=== PATIENT | female | born 1990 | race Caucasian/White ===

== ENCOUNTER 2017-07-08 12:03 | Emergency (ER) | payer MEDICAID, OTHER ==
[2017-07-08 12:12] VITALS: BP 121/76; PULSE 68; RESP 17; TEMP 98.7; O2SAT 99
[2017-07-08] MEDS ORDERED: Tdap Vaccine 0.5 ml Vial (10-64 yrs) IM ONE ×2 (12:15→12:23)
[2017-07-08] MEDS ORDERED: Lidocaine 1% Inj (20ml) INFIL ONE (12:16)
[2017-07-08] MEDS ORDERED: Bacitracin 500 Units/gm Oint Foilpak UD TOP STA (12:16)
--- NOTE | 2017-07-08 12:16 | C.PDOC ---
History Of Present Illness 27-year-old female, presents to the emergency department for evaluation of a laceration sustained to right 3rd and 4th fingers from broken plate, while she was washing dishes. Patient denies any numbness/weakness/change in sensation. No other injuries. Tetanus is not up to date. Time Seen by Provider: 07/08/17 12:13 Chief Complaint (Nursing): Abnormal Skin Integrity History Per: Patient History/Exam Limitations: no limitations Current Symptoms Are (Timing): Still Present Past Medical History Reviewed: Historical Data, Nursing Documentation, Vital Signs Vital Signs: Last Vital Signs Temp 98.7 F 07/08/17 12:06 Pulse 68 07/08/17 12:06 Resp 17 07/08/17 12:06 BP 121/76 07/08/17 12:06 Pulse Ox 99 07/08/17 13:56 - Medical History PMH: Hyperthyroidism Family History: States: No Known Family Hx - Social History Hx Alcohol Use: No Hx Substance Use: No - Immunization History Hx Tetanus Toxoid Vaccination: No Hx Influenza Vaccination: No Hx Pneumococcal Vaccination: No Review Of Systems Musculoskeletal: Positive for: Hand Pain Neurological: Negative for: Weakness, Numbness Physical Exam - Physical Exam Appears: Non-toxic, No Acute Distress Skin: Normal Color, Warm, Dry, No Rash Head: Atraumatic, Normacephalic Nose: Normal Neck: Normal ROM Respiratory: No Accessory Muscle Use Extremity: Normal ROM, Capillary Refill (<2 seconds), No Deformity, No Swelling , Other (Right Hand: 1.2cm irregular laceration to palmar aspect of distal third digit. 1.3 cm linear laceration to palmar aspect of proximal 4th digit. No foreign body) ED Course And Treatment O2 Sat by Pulse Oximetry: 99 (RA) Pulse Ox Interpretation: Normal Progress Note: Pt given Tetanus vaccine Laceration - Laceration Repair R Hand: distal 3rd Digit Wound Length (In cm): 1.2 Description Of Wound: Irregular Wound Cleansed With: Betadine, Sterile Saline Anesthesia: Lidocaine 1% Wound Examination: Irrigated With Saline (high pressure), No FB With Wound Exploration, No Tendon Injury With Wound Exploration Wound Closure: Suture (3) Suture Technique And Material Used: Nylon (4-O) R Hand: proximal 4th digit Wound Length (In cm): 1.3 Description Of Wound: Linear Wound Cleansed With: Betadine, Sterile Saline Anesthesia: Lidocaine 1% Wound Examination: Irrigated With Saline (high pressure), No FB With Wound Exploration, No Tendon Injury With Wound Exploration Wound Closure: Suture (2) Suture Technique And Material Used: Nylon (4-0) Medical Decision Making Medical Decision Making: Splint applied to R 4th digit by software validation technician. Disposition Counseled Patient/Family Regarding: Studies Performed, Diagnosis, Need For Followup - Disposition Referrals: [facility] [Outside] [facility] [Outside] Disposition: HOME/ ROUTINE Disposition Time: 12:21 Condition: STABLE Additional Instructions: WOUND CHECK IN 2 DAYS WITH YOUR PMD OR IN OUR CLINIC. APPLY BACITRACIN OINT 3 TIMES A DAY WITH BANDAID. SUTURE REMOVAL IN 10-14 DAYS. IF WOUND REDNESS, SWELLING OR DISCHARGE DEVELOP RETURN TO ED. Prescriptions: Bacitracin 1 apful EXT TID #30 g Instructions: Laceration Repair With Stitches (DC) Forms: [facility] (Nepali), General Discharge Instructions - Clinical Impression Clinical Impression: Finger laceration - Scribe Statement The provider has reviewed the documentation as recorded by the Scribe (Lenin Ca) All medical record entries made by the Scribe were at my direction and personally dictated by me. I have reviewed the chart and agree that the record accurately reflects my personal performance of the history, physical exam, medical decision making, and the department course for this patient. I have also personally directed, reviewed, and agree with the discharge instructions and disposition.
[2017-07-08] MEDS ORDERED: Bacitracin 500 Units/gm Oint Foilpak UD ONE (12:22)
[2017-07-08] MEDS ORDERED: Lidocaine Hydrochloride 5 ML INJ ONE (12:23)
== END 2017-07-08 12:53 | disposition home or self-care (01) ==
LOC: C.ER 12:03
DX: S61.212A Laceration without foreign body of right middle finger without damage to nail, initial encounter (principal); S61.214A Laceration without foreign body of right ring finger without damage to nail, initial encounter; W45.8XXA Other foreign body or object entering through skin, initial encounter; Y93.G1 Activity, food preparation and clean up; Z23 Encounter for immunization; E05.90 Thyrotoxicosis, unspecified without thyrotoxic crisis or storm